=== PATIENT | female | born 1985 | race Caucasian/White ===

== ENCOUNTER 2021-10-22 07:15 | Day surgery (SDC) | payer OTHER ==
[~2021-10-22] VITALS: Ht 160 cm; Wt 88.5 kg
[~2021-10-22 07:15] MED LIST: ACETAMINOPHEN 500 MG TAB PO ONE; DOXY100T PO; ERGO500029; LR 1,000 ML IV ONE; OMEP-173; SPIR-10 PO; SYNT50TA PO
[2021-10-22] MEDS ORDERED: SCOPOLAMINE 1MG TRANSDERMAL PATCH TOP ONE (08:00)
[2021-10-22 08:05] LABS: HEMATOCRIT 43.1 % (36.0-47.0); HEMOGLOBIN 14.8 g/dl (12.0-15.5); MEAN CORPUSCULAR HEMOGLOBIN 31.5 pg (27.0-33.0); MEAN CORPUSCULAR HGB CONC 34.3 g/dl (32.0-36.5); MEAN CORPUSCULAR VOLUME 91.7 fl (80.0-96.0); PLATELET COUNT, AUTOMATED 305 10^3/uL (150-450); WHITE BLOOD COUNT 7.4 10^3/uL (4.0-10.0)
[2021-10-22] MEDS ORDERED: MIDAZOLAM INJ 2MG/2ML VIAL (J2250 PER 1MG) As Ordered ONE (08:25)
[2021-10-22] MEDS ORDERED: ROCURONIUM BROMIDE 50 MG/5 ML VIAL As Ordered ONE (08:25)
[2021-10-22] MEDS ORDERED: LIDOCAINE 2% 100MG/5ML SDV (FOR ANES.) As Ordered ONE (08:25)
[2021-10-22] MEDS ORDERED: propofoL 200 MG/20 ML VIAL As Ordered ONE (08:25)
[2021-10-22] MEDS ORDERED: fentaNYL 100 MCG/2 ML INJECTION As Ordered ONE ×2 (08:25→09:20)
[2021-10-22] MEDS ORDERED: ONDANSETRON 4MG/2ML VIAL As Ordered ONE (08:25)
[2021-10-22] MEDS ORDERED: dexameTHASONE 4 MG/ML 1ML VIAL (J1100 PER 1MG) As Ordered ONE (08:25)
[2021-10-22] MEDS ORDERED: SCOPOLAMINE 1MG TRANSDERMAL PATCH As Ordered ONE (09:00)
[2021-10-22] MEDS ORDERED: METOCLOPRAMIDE INJ 10MG/2ML VIAL (J2765 PER 1) As Ordered ONE (09:00)
[2021-10-22] MEDS ORDERED: BUPIVACAINE HCL 0.25% 30ML VIAL As Ordered ONE (09:15)
[2021-10-22] MEDS ORDERED: KETOROLAC 60MG 2ML VIAL As Ordered ONE (09:20)
[2021-10-22] MEDS ORDERED: SUGAMMADEX SODIUM 500 MG/5 ML VIAL (BRIDION) As Ordered ONE (09:20)
[2021-10-22] MEDS ORDERED: LR 1,000 ML IV SCH ×2 (10:30)
[2021-10-22] MEDS ORDERED: oxyCODONE 5MG TAB PO PRN (10:30)
[2021-10-22] MEDS ORDERED: HYDROMORPHONE HCL 0.5 MG/ 0.5 ML SYRINGE (J1170 PER 1) IV PRN (10:30)
[2021-10-22] MEDS ORDERED: fentaNYL 100 MCG/2 ML INJECTION IV PRN (10:30)
[2021-10-22] MEDS ORDERED: ONDANSETRON 4MG/2ML VIAL IV PRN (10:30)
[2021-10-22 12:15] VITALS: BP 136/80
== END 2021-10-22 13:10 | disposition home or self-care (01) ==
LOC: M SDC 07:15
PROVIDERS: ATTEND Obstetrics & Gynecology
DX: R10.2 Pelvic and perineal pain (principal); L90.5 Scar conditions and fibrosis of skin; Z90.710 Acquired absence of both cervix and uterus; K66.0 Peritoneal adhesions (postprocedural) (postinfection); I10 Essential (primary) hypertension; E06.3 Autoimmune thyroiditis; K21.9 Gastro-esophageal reflux disease without esophagitis; F41.9 Anxiety disorder, unspecified; F32.9 Major depressive disorder, single episode, unspecified; G43.909 Migraine, unspecified, not intractable, without status migrainosus; E88.81 Metabolic syndrome and other insulin resistance; Z79.899 Other long term (current) drug therapy; Z79.2 Long term (current) use of antibiotics
CPT/HCPCS: 36415; 49320; 81025; 85027; 86850; 86900; 86901; J1100; J1885; J2250; J2405; J2765; J3010

== ENCOUNTER 2022-05-14 21:16 | Emergency (ER) | payer OTHER ==
[~2022-05-14] VITALS: Ht 160 cm; Wt 90.7 kg
[~2022-05-14 21:16] MED LIST changes: -ACETAMINOPHEN 500 MG TAB PO ONE; -LR 1,000 ML IV ONE
[2022-05-14] MEDS ORDERED: SYNT125T (21:28)
[2022-05-14] MEDS ORDERED: GI COCKTAIL 50ML BTL(HYOSCYAMINE/MAALOX/LIDOCAINE VISCOUS)(1:3:1) PO ONE (21:50)
[2022-05-14] MEDS ORDERED: LABETALOL 100MG/20ML VIAL IV STA (21:51)
[2022-05-14 22:20] LABS: BASO % 0.5 % (0.0-1.0); EOS # 0.2 10^3/uL (0.0-0.5); EOS % 2.6 % (0.0-3.0); HEMATOCRIT 38.2 % (36.0-47.0); HEMOGLOBIN 13.1 g/dl (12.0-15.5); LYMPH # 2.7 10^3/uL (1.5-5.0); LYMPH % 36.7 % (24.0-44.0); MEAN CORPUSCULAR HEMOGLOBIN 31.3 pg (27.0-33.0); MEAN CORPUSCULAR HGB CONC 34.3 g/dl (32.0-36.5); MEAN CORPUSCULAR VOLUME 91.2 fl (80.0-96.0); MONO # 0.6 10^3/uL (0.0-0.8); MONO % 8.1 % (2.0-8.0); NEUTROPHILS # 3.8 10^3/uL (1.5-8.5); NEUTROPHILS % 51.7 % (36.0-66.0); PLATELET COUNT, AUTOMATED 280 10^3/uL (150-450); RED BLOOD COUNT 4.19 10^6/uL (4.00-5.40); WHITE BLOOD COUNT 7.3 10^3/uL (4.0-10.0)
[2022-05-14 22:31] LABS: INR 0.91; PARTIAL THROMBOPLASTIN TIME 26.4 SECONDS (24.8-34.2); PROTHROMBIN TIME 12.5 SECONDS (12.5-14.5)
[2022-05-14 22:55] LABS: RSV AMPLIFICATION NEGATIVE (NEGATIVE)
[2022-05-14 23:01] LABS: CK-MB VALUE MASS < 1.0 NG/ML (<3.6); CPK CREATINE PHOSPHOKINASE 37 U/L (26-192)
[2022-05-14 23:08] LABS: ALBUMIN 3.6 GM/DL (3.2-5.2); ALT/SGPT 37 U/L (12-78); BILIRUBIN,DIRECT < 0.1 MG/DL (0.0-0.2); BILIRUBIN,TOTAL 0.2 MG/DL (0.2-1.0); BLOOD UREA NITROGEN 10 MG/DL (7-18); CALCIUM LEVEL 9.1 MG/DL (8.5-10.1); CARBON DIOXIDE LEVEL 26 MEQ/L (21-32); CHLORIDE LEVEL 106 MEQ/L (98-107); CREATININE FOR GFR 0.96 MG/DL (0.55-1.30); GLOMERULAR FILTRATION RATE > 60.0 (>60); GLUCOSE, FASTING 195 MG/DL (70-100); LIPASE 104 U/L (73-393); NT-PRO BNP 35 PG/ML (<125); POTASSIUM SERUM 3.8 MEQ/L (3.5-5.1); SODIUM LEVEL 140 MEQ/L (136-145); TOTAL PROTEIN 7.4 GM/DL (6.4-8.2)
[2022-05-14] MEDS ORDERED: ISOVUE-370 76% 100ML VIAL As Ordered ONE (23:14)
[2022-05-14 23:50] LABS: CK-MB VALUE MASS < 1.0 NG/ML (<3.6); CPK CREATINE PHOSPHOKINASE 32 U/L (26-192); MB/CK RELATIVE INDEX 3.12 (< OR =4)
[2022-05-15 01:30] VITALS: BP 133/93
[2022-05-15] MEDS ORDERED: KETO10TAB PO (01:33)
[2022-05-15] MEDS ORDERED: KETOROLAC 30 MG/ML 1ML VIAL IV ONE (01:35)
== END 2022-05-15 02:05 | disposition home or self-care (01) ==
LOC: M ED 21:16
DX: R07.89 Other chest pain (principal); R51.9 Headache, unspecified; Z90.710 Acquired absence of both cervix and uterus; Z79.890 Hormone replacement therapy; Z79.899 Other long term (current) drug therapy
CPT/HCPCS: 71045; 71275; 80047; 80048; 80076; 82550; 82553; 83690; 83880; 84443; 84484; 85025; 85610; 85730; 87631; 93005; 93041; 94760; 96374; 99284; J1885; Q9967